=== PATIENT | male | born 1965 | race Caucasian/White ===

== ENCOUNTER 2022-03-17 09:40 | Emergency (ER) | payer SELFPAY ==
[2022-03-17 10:06] VITALS: BP 174/78; PULSE 79; RESP 16; TEMP 36.7; O2SAT 98
[2022-03-17 10:22] VITALS: BP 138/73
[2022-03-17 11:32] LABS: COVID-19 PCR Negative (Negative); Influenza A PCR Negative (Negative); Influenza B PCR Negative (Negative); RSV PCR Negative (Negative)
--- NOTE | 2022-03-17 11:46 | ED.GENADUL_ITS ---
Discharge Plan Disposition Patient Disposition: HOME Condition: Stable Discharge Details Clinical Impression: Cough Primary Care Provider: Unknown,Unknown ED Provider: Marlon Ramirez Home Meds and New Rx's Prescriptions: Continued metformin 500 mg tablet 1 tab PO BID Label Comments: TAKE TWO TABLETS BY MOUTH IN THE MORNING AND 3 TABLETS IN THE EVENING trazodone 150 mg tablet 1 tab PO .QHS Label Comments: TAKE ONE TABLET BY MOUTH AT BEDTIME gabapentin 300 mg capsule 300 mg PO DAILY Label Comments: TAKE 1 CAPSULE DAILY IN THE MORNING AND 3 CAPSULES AT BEDTIME verapamil 240 mg tablet extended release 240 mg PO BID Label Comments: TAKE ONE TABLET BY MOUTH TWICE A DAY FOR BLOOD PRESSURE losartan 100 mg tablet 1 tab PO DAILY Label Comments: TAKE ONE TABLET BY MOUTH EVERY DAY terazosin 10 mg capsule 1 cap PO DAILY Label Comments: TAKE TWO CAPSULES BY MOUTH EVERY DAY hydrochlorothiazide 12.5 mg tablet 12.5 mg PO DAILY Label Comments: TAKE ONE TABLET BY MOUTH EVERY MORNING Jardiance 10 mg tablet 1 tab PO DAILY Label Comments: TAKE ONE TABLET BY MOUTH EVERY DAY Trulicity 3 mg/0.5 mL pen injector SUBCUT .WEEKLY Label Comments: INJECT 3 MILLIGRAMS ONCE WEEKLY Discharge Instructions Instructions: Acute Cough (ED) Additional Instructions: Your COVID, flu, RSV test are all negative. [id number] medication as directed for symptomatic control. Please watch for new or worsening symptoms and return to the ER for any concerns. I do recommend reaching out to your primary care provider to make them aware of your ER visit and need for outpatient reevaluation Medical Decision Making 56-year-old gentleman, past medical history of diabetes, non smoker, presents for URI-like symptoms, is currently taking a class and is concerned about COVID and COVID exposures. Clinically he appears well, nontoxic, he is afebrile, lungs are clear to auscultation, O2 sat 98% on room air. Plan is to obtain a Fluvid swab and reassess. Flu, RSV, COVID-negative. No clear indication for chest x-ray. Patient relieved that he does not have COVID and is comfortable treating his mild symptoms with [id number] medications. Standard discharge and return precautions were provided. Patient understands, is agreeable to this plan, and has no additional questions or concerns upon discharge. This documentation was generated using [employer] system, please disregard any oddities of phrase or misspellings. Lab Data Lab results reviewed: Yes I reviewed the patient's lab results. Labs: Laboratory Tests Range/Units 03/17/22 10:48 COVID-19 Source Not Applicable SARS-CoV-2 (PCR) (Negative) Negative Influenza Type A (PCR) (Negative) Negative Influenza Type B (PCR) (Negative) Negative RSV (PCR) (Negative) Negative HPI General Mode of arrival: ambulatory . Date/Time Provider Initiated Documentation: 03/17/22 10:26 . Limitations to Documentation: no limitations . Information obtained by: patient . History of Present Illness 56 year old M presents to the emergency department with the chief complaint of uri, described as moderate, with intensity rated at 4. Quality is described as aching, and is localized to the back (Body aches). Patient reports no radiation. Patient started experiencing this day(s) (3) and it has been constant. No relieving factors improve symptom(s), No exacerbating factors reported . Patient notes cough; denies fever/chills and nausea/vomiting. Patient did receive the following treatments prior to arrival, none Related Data Home Medications Medication Instructions Recorded Confirmed dulaglutide 3 mg/0.5 mL device subcut .WEEKLY 03/17/22 subcutaneous pen injector (Trulicity) empagliflozin 10 mg tablet 1 tab PO DAILY 03/17/22 03/17/22 (Jardiance) gabapentin 300 mg capsule 300 mg PO DAILY 03/17/22 03/17/22 hydrochlorothiazide 12.5 mg tablet 12.5 mg PO DAILY 03/17/22 03/17/22 losartan 100 mg tablet 1 tab PO DAILY 03/17/22 03/17/22 metformin 500 mg tablet 1 tab PO BID 03/17/22 03/17/22 terazosin 10 mg capsule 1 cap PO DAILY 03/17/22 03/17/22 trazodone 150 mg tablet 1 tab PO .QHS 03/17/22 03/17/22 verapamil 240 mg tablet,extended 240 mg PO BID 03/17/22 03/17/22 release Allergies Allergy/AdvReac Type Severity Reaction Status Date / Time No Known Allergies Allergy Unverified 03/17/22 10:10 General Stated Complaint: RespSymp DANIEL: 4 Review of Systems Constitutional Constitutional: Denies fever(s) ENT Ears, Nose, Mouth, and Throat: Denies neck pain and Reports sore throat Cardiovascular Cardiovascular: Denies chest pain and Denies dyspnea Respiratory Respiratory: Reports cough and Denies dyspnea Gastrointestinal Gastrointestinal: Denies abdominal pain, Denies diarrhea, Denies nausea and Denies vomiting Musculoskeletal Musculoskeletal: Reports myalgias and Denies neck pain Integumentary/Breasts Skin/Breast: Denies rash PFSH All Active Problems (Updated 03/17/22 @ 11:47 by ANALI Lepe) Cough (Acute) Social History Smoking/Tobacco Use Status: Former Tobacco Use Smoking risk assessment performed?: Yes Substance use type: does not use Exam Const General: cooperative, healthy appearing, comfortable and no acute distress Orientation: alert and awake HENMT Head: normal to inspection, normocephalic and atraumatic Face and sinus: normal facial exam Mouth: moist mucous membranes Throat: posterior oropharynx normal Eyes General: appearance normal, both eyes and all related structures Conjunctivae: conjunctivae normal Neck Neck: normal visual inspection, full ROM, no meningeal signs, trachea midline and supple Resp Effort & Inspection: normal respiratory effort and able to speak in complete sentences Auscultation: clear to auscultation bilaterally Cardio Rate: regular rate Rhythm: regular rhythm Skin General skin exam: no rashes or lesions noted Neuro General: patient alert, patient awake, moves all extremities and no focal motor deficits Sensory Exam: no sensory deficits noted Psych Appearance: grossly normal Mental Status: mental status grossly normal Course Vital Signs Vital signs: Vital Signs Temperature 36.7 C 03/17/22 10:06 Pulse 79 03/17/22 10:06 Respiratory Rate 16 03/17/22 10:06 Blood Pressure 174/78 H 03/17/22 10:06 Pulse Oximetry 98 03/17/22 10:06 Temperature 36.7 C 03/17/22 10:06 Temperature Source Oral 03/17/22 10:06 Pulse 79 03/17/22 10:06 Respiratory Rate 16 03/17/22 10:06 Respiratory Effort 03/17/22 10:06 Blood Pressure 138/73 03/17/22 10:22 Blood Pressure Position Sitting 03/17/22 10:06 Pulse Oximetry 98 03/17/22 10:06 Oxygen Delivery Method Room Air 03/17/22 10:06 Oxygen Flow Rate 0 03/17/22 10:06 Pain Level 7 03/17/22 10:06 Lab/Test Results Lab/Test Results: Laboratory Tests Range/Units 03/17/22 10:48 COVID-19 Source Not Applicable SARS-CoV-2 (PCR) (Negative) Negative Influenza Type A (PCR) (Negative) Negative Influenza Type B (PCR) (Negative) Negative RSV (PCR) (Negative) Negative
== END 2022-03-17 11:54 | disposition home or self-care (01) ==
PROVIDERS: Emergency Provider Physician Assistant
DX: R05.1 Acute cough (principal); J02.9 Acute pharyngitis, unspecified; Z20.822 Contact with and (suspected) exposure to COVID-19
CPT/HCPCS: 87637; 99282

== ENCOUNTER 2022-04-01 10:19 | Emergency (ER) | payer SELFPAY ==
[2022-04-01] VITALS (18 sets, daily range): BP systolic 112–139; BP diastolic 63–78; PULSE 67–79; RESP 18; TEMP 36.6; O2SAT 93–98
--- NOTE | 2022-04-01 10:15 | RT.EKG_ITS ---
APPROVED REPORT Exam: Resting ECG Reason for Exam: dizzy Patient Location: E HR:82 bpm ECG Measurements Heart Rate 82 AXIS VA 150 P -19 QRSd 88 QRS 27 QT 368 T 26 QTc 429 Conclusion Sinus rhythm...normal P axis, V-rate 60- 99 sinus rhythm at 82, normal axis, no acute ischemic changes, nondiagnostic EKG
--- NOTE | 2022-04-01 12:01 | W.ED.GENAD ---
Discharge Plan Disposition Patient Disposition: AGAINST MEDICAL ADVICE Condition: Stable Discharge Details Clinical Impression: Acute kidney injury, Pneumonia Primary Care Provider: Unknown,Unknown ED Provider: Zoila Ocampo Home Meds and New Rx's Prescriptions: New azithromycin 250 mg tablet 250 mg PO DAILY 4 Days Qty: 4 0RF Rx Instructions: start on day 2 of therapy (04/02/22) Continued metformin 500 mg tablet 1 tab PO BID Label Comments: TAKE TWO TABLETS BY MOUTH IN THE MORNING AND 3 TABLETS IN THE EVENING trazodone 150 mg tablet 1 tab PO .QHS Label Comments: TAKE ONE TABLET BY MOUTH AT BEDTIME gabapentin 300 mg capsule 300 mg PO DAILY Label Comments: TAKE 1 CAPSULE DAILY IN THE MORNING AND 3 CAPSULES AT BEDTIME verapamil 240 mg tablet extended release 240 mg PO BID Label Comments: TAKE ONE TABLET BY MOUTH TWICE A DAY FOR BLOOD PRESSURE losartan 100 mg tablet 1 tab PO DAILY Label Comments: TAKE ONE TABLET BY MOUTH EVERY DAY terazosin 10 mg capsule 1 cap PO DAILY Label Comments: TAKE TWO CAPSULES BY MOUTH EVERY DAY hydrochlorothiazide 12.5 mg tablet 12.5 mg PO DAILY Label Comments: TAKE ONE TABLET BY MOUTH EVERY MORNING Jardiance 10 mg tablet 1 tab PO DAILY Label Comments: TAKE ONE TABLET BY MOUTH EVERY DAY Trulicity 3 mg/0.5 mL pen injector SUBCUT .WEEKLY Label Comments: INJECT 3 MILLIGRAMS ONCE WEEKLY Discharge Instructions Instructions: Pneumonia (ED) Additional Instructions: You have elected to leave the emergency department AGAINST MEDICAL ADVICE. As we discussed, the risks of doing so are or permanent disability. You may return to emergency department anytime if you change your mind. Please drink plenty of fluids. Please return immediately to the emergency department if you develop any new or worsening symptoms, if your condition does not improve as expected, or if you become otherwise concerned. It is extremely important that you call soon as possible to make an appointment to be seen in follow-up for this visit by your primary care doctor. Discharge Data Discharge Date/Time-TO BE ENTERED AT DEPARTURE: 04/01/22 14:05 Medical Decision Making Kulwinder Jensen is a 56-year-old man with a history of hypertension, diabetes presenting to emergency department with lightheadedness. Patient reports that for the past 3 days he has had lightheadedness as if he were going to faint with standing. Patient reports that he also feels some sense of motion when he has lightheadedness, as if he has to hold on to a person or a wall. Patient reports that symptoms improve after 1 to 2 minutes when he sits down. He denies symptoms with turning his head. Patient reports that he has had similar symptoms in the past 6 or 7 years ago, and was diagnosed with vertigo by his doctor. Patient reports that symptoms went away on their own without intervention at that time. Patient reports that since onset of symptoms 3 days ago he has also had shortness of breath. Patient reports that he feels mildly short of breath at all times, including right now in the emergency department. No modifiers for shortness of breath. He denies any pain, fever, cough, vomiting, diarrhea, numbness, weakness, rash. Patient reports that 2 weeks ago he developed runny nose, cough, and fatigue, and thought he had COVID. He tested negative. Those symptoms resolved prior to onset of his symptoms for which he is here today. On exam patient is very well and nontoxic-appearing. He does not appear nauseated. Benign cardiopulmonary exam, benign neurologic exam, standing and sitting in the ED without issue or apparent lack of balance, normal gait. Concern for dehydration, metabolic/electrolyte derangement, orthostatic presyncope, peripheral vertigo, COVID, other. Doubt pulmonary embolism. Exam/history at this time is not consistent with central vertigo/CVA, acute coronary syndrome, acute aortic pathology, sepsis. Patient with elevated creatinine, D-dimer on screening labs. Discussed results with patient, discussed my recommendation for IV placement for IV fluid hydration, admission for further evaluation of shortness of breath and etiology of acute kidney injury including further imaging with contrast. Patient continues to refuse IV placement, states that he would like to go home and will follow up with his PCP this week. I discussed risks of leaving AGAINST MEDICAL ADVICE including or permanent disability, patient verbalized understanding of these risks and continued to wish to leave the emergency department AMA. Patient patient is alert and oriented x3, clear speech, lucid thought process, has decision-making capacity for informed refusal at this time. Patient states that he is able to drink fluids fine, and will drink fluids, and would prefer to be discharged back to class. He states that he overall feels well and essentially at baseline. I called patient's PCPs office and discussed patient with available physician (patient's PCP not in today). She reports she will call patient to set up a follow-up appointment this week. Chest x-ray shows possible bilateral pneumonia. Given patient with recent respiratory symptoms, shortness of breath, leukocytosis will treat with azithromycin at this time. Patient notified of these results, patient continues to wish to leave AGAINST MEDICAL ADVICE. Risks reiterated, patient verbalized understanding of risk of possible , permanent disability, and continues to refuse further evaluation/treatment. I had a discussion with Patient regarding return to emergency department precautions, home care, and importance of outpatient follow-up. Pt verbalizes understanding of the plan and is amenable. Patient discharged to home with clear plan for outpatient follow-up. All questions were answered. Patient walked out of the emergency department without issue. Disposition decision was made weighing the risks and benefits of hospitalization versus outpatient treatment, the risk for further decompensation, and the patient's wishes. Patient placed on care management list to facilitate outpatient follow-up this week. Medical Records Medical records reviewed: Yes I reviewed the patient's medical records. Imaging Data Radiologic Study: Attestation: I personally reviewed and interpreted this imaging study as follows: Radiologist's impression: EXAM:? XR PORTABLE CHEST AP CLINICAL HISTORY:? SOB, PUI TECHNIQUE:? 2D digital imaging was performed. COMPARISON:? No exams were available for comparison FINDINGS: Exam limited by underpenetration, poor pulmonary inflation and patient body habitus as well as positioning..? LUNGS: Question of basilar infiltrates versus atelectasis.? Clear.? No pleural abnormality seen. HEART: Appears enlarged but may be projectional. AORTA: Normal. BONES: Unremarkable for age.? Soft tissues: Unremarkable. IMPRESSION: Question of basilar infiltrates versus atelectasis.? Limited exam. Lab Data Lab results reviewed: Yes I reviewed the patient's lab results. Labs: Laboratory Tests Range/Units 04/01/22 04/01/22 04/01/22 12:15 12:30 12:30 WBC (4.4-10.8) 10^3/uL 11.70 H RBC (4.36-5.78) 10^6/uL 5.72 Hgb (13.5-17.5) g/dL 16.4 Hct (40.0-50.0) % 48.0 MCV (80-95) fL 84 MCH (27.0-33.0) pg 28.7 MCHC (32.0-36.0) % 34.2 RDW (11.8-14.1) % 13.6 Plt Count (130-400) 10^3/uL 602 H MPV (8.0-11.0) fL 10.2 Immature Gran % 0.4 Neutrophils % 79.3 Lymphocytes % 11.5 Monocytes % 6.1 Eosinophils % 2.6 Basophils % 0.1 Nucleated RBC % (0.0-0.3) % 0.0 Absolute Neutrophils (1.2-6.7) 10^3/uL 9.28 H Absolute Lymphocytes (1.2-3.4) 10^3/uL 1.35 Absolute Monocytes (0.1-0.8) 10^3/uL 0.71 Absolute Eosinophils (0.0-0.7) 10^3/uL 0.30 Absolute Basophils (0.0-0.2) 10^3/uL 0.01 D-Dimer (<500) ng/mlFEU Sodium (136-145) mmol/L 139 Potassium (3.5-5.1) mmol/L 4.3 Chloride (98-107) mmol/L 103 Carbon Dioxide (21.0-32.0) mmol/L 29.0 Anion Gap (3-11) mmol/L 7.0 BUN (7-18) mg/dL 39 H Creatinine (0.70-1.30) mg/dL 2.1 H Estimated GFR/1.73 m2 (mL/min/1.73m2) 32.60 Glucose (74-106) mg/dL 127 H Calcium (8.5-10.1) mg/dL 8.9 Magnesium (1.8-2.4) mg/dL 2.0 Total Bilirubin (0.2-1.0) mg/dL 0.4 AST (15-37) U/L 36 ALT (16-63) U/L 72 H Alkaline Phosphatase (46-116) U/L 170 H Total Protein (6.4-8.2) g/dL 7.3 Albumin (3.4-5.0) g/dL 3.1 L Urine Color (Yellow) Urine Clarity (Clear) Urine pH (5-8) Ur Specific Patterson (1.005-1.025) Urine Protein (Negative) mg/dL Urine Ketones (Negative) mg/dL Urine Blood (Negative) Urine Nitrite (Negative) Urine Bilirubin (Negative) Urine Urobilinogen (Up TO 0.2) EU/dL Ur Leukocyte Esterase (Negative) Urine RBC (0-2) HPF Urine WBC (0-5) HPF Ur Epithelial Cells (Negative) HPF Urine Crystals (Negative) HPF Urine Bacteria (Negative) HPF Urine Casts (Negative) LPF Urine Mucus (Negative) Ur Culture Indicated? Urine Glucose (Negative) mg/dL COVID-19 Source Nasal/Nares SARS-CoV-2 (PCR) (Negative) Negative Range/Units 04/01/22 04/01/22 12:30 12:30 WBC (4.4-10.8) 10^3/uL RBC (4.36-5.78) 10^6/uL Hgb (13.5-17.5) g/dL Hct (40.0-50.0) % MCV (80-95) fL MCH (27.0-33.0) pg MCHC (32.0-36.0) % RDW (11.8-14.1) % Plt Count (130-400) 10^3/uL MPV (8.0-11.0) fL Immature Gran % Neutrophils % Lymphocytes % Monocytes % Eosinophils % Basophils % Nucleated RBC % (0.0-0.3) % Absolute Neutrophils (1.2-6.7) 10^3/uL Absolute Lymphocytes (1.2-3.4) 10^3/uL Absolute Monocytes (0.1-0.8) 10^3/uL Absolute Eosinophils (0.0-0.7) 10^3/uL Absolute Basophils (0.0-0.2) 10^3/uL D-Dimer (<500) ng/mlFEU 525 H Sodium (136-145) mmol/L Potassium (3.5-5.1) mmol/L Chloride (98-107) mmol/L Carbon Dioxide (21.0-32.0) mmol/L Anion Gap (3-11) mmol/L BUN (7-18) mg/dL Creatinine (0.70-1.30) mg/dL Estimated GFR/1.73 m2 (mL/min/1.73m2) Glucose (74-106) mg/dL Calcium (8.5-10.1) mg/dL Magnesium (1.8-2.4) mg/dL Total Bilirubin (0.2-1.0) mg/dL AST (15-37) U/L ALT (16-63) U/L Alkaline Phosphatase (46-116) U/L Total Protein (6.4-8.2) g/dL Albumin (3.4-5.0) g/dL Urine Color (Yellow) Yellow Urine Clarity (Clear) Clear Urine pH (5-8) 5.5 Ur Specific Patterson (1.005-1.025) 1.025 Urine Protein (Negative) mg/dL >=300 H Urine Ketones (Negative) mg/dL Negative Urine Blood (Negative) Negative Urine Nitrite (Negative) Negative Urine Bilirubin (Negative) Negative Urine Urobilinogen (Up TO 0.2) EU/dL 1.0 H Ur Leukocyte Esterase (Negative) Negative Urine RBC (0-2) HPF Negative Urine WBC (0-5) HPF Negative Ur Epithelial Cells (Negative) HPF Rare Urine Crystals (Negative) HPF Negative Urine Bacteria (Negative) HPF Negative Urine Casts (Negative) LPF 3-5 Hyaline Urine Mucus (Negative) Trace Ur Culture Indicated? No Urine Glucose (Negative) mg/dL 500 H COVID-19 Source SARS-CoV-2 (PCR) (Negative) ECG Data Attestation: I personally reviewed and interpreted this ECG (s) as follows: Interpretation: EKG shows sinus rhythm at 82, normal axis, no acute ischemic changes, nondiagnostic EKG HPI General Mode of arrival: ambulatory. Date/Time Provider Initiated Documentation: 04/01/22 11:59. Limitations to Documentation: no limitations. Information obtained by: patient, RN notes reviewed and old records reviewed. HPI Narrative: Kulwinder Jensen is a 56-year-old man with a history of hypertension, diabetes presenting to emergency department with lightheadedness. Patient reports that for the past 3 days he has had lightheadedness as if he were going to faint with standing. Patient reports that he also feels some sense of motion when he has lightheadedness, as if he has to hold on to a person or a wall. Patient reports that symptoms improve after 1 to 2 minutes when he sits down. He denies symptoms with turning his head. Patient reports that he has had similar symptoms in the past 6 or 7 years ago, and was diagnosed with vertigo by his doctor. Patient reports that symptoms went away on their own without intervention at that time. Patient reports that since onset of symptoms 3 days ago he has also had shortness of breath. Patient reports that he feels mildly short of breath at all times, including right now in the emergency department. No modifiers for shortness of breath. He denies any pain, fever, cough, vomiting, diarrhea, numbness, weakness, rash. Patient reports that 2 weeks ago he developed runny nose, cough, and fatigue, and thought he had COVID. He tested negative. Those symptoms resolved prior to onset of his symptoms for which he is here today. Related Data Home Medications Medication Instructions Recorded Confirmed dulaglutide 3 mg/0.5 mL device subcut .WEEKLY 03/17/22 subcutaneous pen injector (Trulicity) empagliflozin 10 mg tablet 1 tab PO DAILY 03/17/22 04/01/22 (Jardiance) gabapentin 300 mg capsule 300 mg PO DAILY 03/17/22 04/01/22 hydrochlorothiazide 12.5 mg tablet 12.5 mg PO DAILY 03/17/22 04/01/22 losartan 100 mg tablet 1 tab PO DAILY 03/17/22 04/01/22 metformin 500 mg tablet 1 tab PO BID 03/17/22 04/01/22 terazosin 10 mg capsule 1 cap PO DAILY 03/17/22 04/01/22 trazodone 150 mg tablet 1 tab PO .QHS 03/17/22 04/01/22 verapamil 240 mg tablet,extended 240 mg PO BID 03/17/22 04/01/22 release azithromycin 250 mg tablet 250 mg PO DAILY 4 days #4 tabs 04/01/22 Previous Rx's Medication Instructions Recorded azithromycin 250 mg tablet 250 mg PO DAILY 4 days #4 tabs 04/01/22 Allergies Allergy/AdvReac Type Severity Reaction Status Date / Time No Known Allergies Allergy Unverified 03/17/22 10:10 General Stated Complaint: RespSymp DANIEL: 3 Review of Systems Narrative: Constitutional: denies fevers Eyes: denies eye pain ENT: denies ear pain, dental pain, sore throat Cardiovascular: denies chest pain, edema, reports lightheadedness Respiratory: denies cough, reports shortness of breath GI: denies abdominal pain, vomiting, diarrhea : denies flank pain MSK: denies back pain, neck pain, arthralgias, myalgias Skin: denies rash Neuro: denies headaches, numbness, weakness, reports vertigo PFSH All Active Problems (Updated 04/01/22 @ 13:47 by Zoila Ocampo MD) Cough (Acute) Acute kidney injury (Acute) Pneumonia (Acute) Social History Smoking/Tobacco Use Status: Former Tobacco Use Smoking risk assessment performed?: Yes Alcohol Intake: current Alcohol Intake frequency: holidays/special occasions only Drug use: Never Substance use type: does not use Do you feel safe at home: Yes Do you feel safe in your relationship?: Yes Exam Narrative Exam Narrative: Constitutional: well and [id number], pleasant, conversing normally HENT: head atraumatic/normocephalic/normal inspection, mucous membranes moist, TMs and canals normal bilaterally Eyes: conjunctiva normal, sclera normal, pupils 3mm b/l Neck: no stridor, normal ROM, trachea midline Chest: normal inspection Resp: normal work of breathing, LCTAB Cardio: normal rate, normal rhythm, no murmur appreciated GI: abdomen soft, non-tender, non-distended Back: normal inspection, no rash Skin: warm, dry, normal color, no rash Neuro: alert, not altered, cranial nerves II through XII intact, motor 5 out of 5 throughout, normal tone Ext: no edema Psych: normal mood, normal affect, normal behavior Course Vital Signs Vital signs: Vital Signs Temperature 36.6 C 04/01/22 10:24 Pulse 79 04/01/22 10:24 Respiratory Rate 18 04/01/22 10:24 Blood Pressure 112/71 04/01/22 10:24 Pulse Oximetry 96 04/01/22 10:24 Temperature 36.6 C 04/01/22 10:24 Temperature Source Temporal Artery Scan 04/01/22 10:24 Pulse 79 04/01/22 10:24 Respiratory Rate 18 04/01/22 10:24 Respiratory Effort Non-Labored 04/01/22 10:29 Blood Pressure 112/71 04/01/22 10:24 Blood Pressure Position Sitting 04/01/22 10:24 Pulse Oximetry 96 04/01/22 10:24 Oxygen Delivery Method Room Air 04/01/22 10:24 Oxygen Flow Rate 0 04/01/22 10:24
--- NOTE | 2022-04-01 12:15 | DI.RAD_ITS ---
Exam(s) XR PORTABLE CHEST AP EXAM: XR PORTABLE CHEST AP CLINICAL HISTORY: SOB, PUI TECHNIQUE: 2D digital imaging was performed. COMPARISON: No exams were available for comparison FINDINGS: Exam limited by underpenetration, poor pulmonary inflation and patient body habitus as well as positi oning.. LUNGS: Question of basilar infiltrates versus atelectasis. Clear. No pleural abnormality seen. HEART: Appears enlarged but may be projectional. AORTA: Normal. BONES: Unremarkable for age. Soft tissues: Unremarkable. IMPRESSION: Question of basilar infiltrates versus atelectasis. Limited exam. DATA REPOSITORY: RADIATION DOSE DELIVERED:
[2022-04-01] MEDS: Meclizine 25 MG TAB PO (12:19)
[2022-04-01 12:34] LABS: Source Nasal/Nares
[2022-04-01 12:36] LABS: Abs Immature Grans 0.05 10^3/uL (0.0-0.06); Absolute Basophil Count 0.01 10^3/uL (0.0-0.2); Absolute Lymphocyte Count 1.35 10^3/uL (1.2-3.4); Absolute Monocyte Count 0.71 10^3/uL (0.1-0.8); Absolute Neutrophil Count 9.28 10^3/uL (1.2-6.7); Basophils % 0.1; Eosinophils % 2.6; HGB 16.4 g/dL (13.5-17.5); Immature Grans % 0.4; Lymphocytes % 11.5; MCH 28.7 pg (27.0-33.0); MCHC 34.2 % (32.0-36.0); MCV 84 fL (80-95); MPV 10.2 fL (8.0-11.0); Monocytes % 6.1; Neutrophils % 79.3; Platelet Count 602 10^3/uL (130-400); RBC 5.72 10^6/uL (4.36-5.78); RDW 13.6 % (11.8-14.1); RDW-SD 41.4 fL
[2022-04-01 12:37] LABS: Bilirubin Negative (Negative); Blood Negative (Negative); Clarity Clear (Clear); Glucose 500 mg/dL (Negative); Ketones Negative (Negative); Leukocyte Esterase Negative (Negative); Nitrite Negative (Negative); Specific Gravity 1.025 (1.005-1.025); pH 5.5 (5-8)
[2022-04-01 12:45] LABS: Bacteria Negative HPF (Negative); C & S Indicated? No; Casts 3-5 Hyaline LPF (Negative); Crystals Negative HPF (Negative); Epithelial Cells Rare HPF (Negative); Mucus Trace (Negative); RBC Negative HPF (0-2); WBC Negative HPF (0-5)
[2022-04-01 12:50] LABS: ALT 72 U/L (16-63); AST 36 U/L (15-37); Albumin 3.1 g/dL (3.4-5.0); Alkaline Phosphatase 170 U/L (46-116); BUN 39 mg/dL (7-18); Bilirubin, Total 0.4 mg/dL (0.2-1.0); CREATININE 2.1 mg/dL (0.70-1.30); Calcium 8.9 mg/dL (8.5-10.1); Chloride 103 mmol/L (98-107); Glucose 127 mg/dL (74-106); Potassium 4.3 mmol/L (3.5-5.1); Sodium 139 mmol/L (136-145); Total Protein 7.3 g/dL (6.4-8.2)
[2022-04-01 13:06] LABS: D-Dimer 525 ng/mlFEU (<500)
[2022-04-01 13:33] LABS: COVID-19 PCR Negative (Negative)
[2022-04-01] MEDS: Azithromycin 250 MG TAB 500 MG PO (13:54)
== END 2022-04-01 14:05 | disposition left against medical advice (07) ==
PROVIDERS: Emergency Provider Student in an Organized Health Care Education/Training Program
DX: N17.9 Acute kidney failure, unspecified (principal); J18.9 Pneumonia, unspecified organism; Z53.29 Procedure and treatment not carried out because of patient's decision for other reasons; R06.02 Shortness of breath; R42 Dizziness and giddiness
CPT/HCPCS: 36415; 80053; 87635; 93005; 99284; 71045; 81003; 81015; 83735; 85025; 85379; 93010

== ENCOUNTER 2022-04-11 06:35 | Emergency (ER) | payer SELFPAY ==
[2022-04-11 06:45] VITALS: BP 117/76; PULSE 102; RESP 20; TEMP 36.8; O2SAT 96
--- NOTE | 2022-04-11 06:45 | RT.EKG_ITS ---
APPROVED REPORT Exam: Resting ECG Reason for Exam: shortness of breath Patient Location: E HR:96 bpm ECG Measurements Heart Rate 96 AXIS HI 147 P 15 QRSd 88 QRS 47 QT 345 T 30 QTc 435 Conclusion Sinus rhythm...normal P axis, V-rate 60- 99 no stemi
--- NOTE | 2022-04-11 06:56 | ED.GENADUL_ITS ---
Discharge Plan Disposition Patient Disposition: STILL A PATIENT Condition: Stable Discharge Details Clinical Impression: Shortness of breath Primary Care Provider: Unknown,Unknown ED Provider: Maikel Haddad Home Meds and New Rx's Prescriptions: No Action metformin 500 mg tablet 1 tab PO BID Label Comments: TAKE TWO TABLETS BY MOUTH IN THE MORNING AND 3 TABLETS IN THE EVENING trazodone 150 mg tablet 1 tab PO .QHS Label Comments: TAKE ONE TABLET BY MOUTH AT BEDTIME gabapentin 300 mg capsule 300 mg PO DAILY Label Comments: TAKE 1 CAPSULE DAILY IN THE MORNING AND 3 CAPSULES AT BEDTIME verapamil 240 mg tablet extended release 240 mg PO BID Label Comments: TAKE ONE TABLET BY MOUTH TWICE A DAY FOR BLOOD PRESSURE losartan 100 mg tablet 1 tab PO DAILY Label Comments: TAKE ONE TABLET BY MOUTH EVERY DAY terazosin 10 mg capsule 1 cap PO DAILY Label Comments: TAKE TWO CAPSULES BY MOUTH EVERY DAY hydrochlorothiazide 12.5 mg tablet 12.5 mg PO DAILY Label Comments: TAKE ONE TABLET BY MOUTH EVERY MORNING Jardiance 10 mg tablet 1 tab PO DAILY Label Comments: TAKE ONE TABLET BY MOUTH EVERY DAY Trulicity 3 mg/0.5 mL pen injector SUBCUT .WEEKLY Label Comments: INJECT 3 MILLIGRAMS ONCE WEEKLY Medical Decision Making 56 yo male with hx of HTN 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 He was seen on 04/01 for shortness of breath, first time having cmp done in our facility and creatinine was foud to be just over 2 and GFR in the 30's, unclear if this is new for him. He had a d dimer that was below his age adjusted threshold and negative troponin and xray showing atelecatasis vs infiltrate. He left ama and was placed on azithromycin, denies ever having cough or fevers. He felt better but again this morning upon wakening felt short of breath and had tremors in his hands so came here. He denies having chest pain, abdomen pain, back pain. He arrives stable speaking in full sentences. He has no calf tenderness, clear lungs, no murmurs. He states he still feels like he has tremors in his hands though I do not visualize any tremors in his hands. Unclear etiology for his symptoms, ekg nondiagnostic. He has no chest pain but given his DM could present with nstemi atypically, will obtain troponin x2. Will also evaluate for anemia, worsening kidney function, and also send d dimer as he is wells score low. pt stable, labs and xray still pending, pt signed out to oncoming provider pending these results and dispo Differential Diagnosis Differential Diagnosis: pneumonia, covid, pe, nstemi Medical Records Medical records reviewed: Yes I reviewed the patient's medical records. Lab Data Lab results reviewed: Yes I reviewed the patient's lab results. ECG Data Attestation: I personally reviewed and interpreted this ECG (s) as follows: Prior ECG tracings: available for review Interpretation: sinus rhythm, rate of 96, no stemi HPI General Mode of arrival: ambulatory . Date/Time Provider Initiated Documentation: 04/11/22 06:37 . Limitations to Documentation: no limitations . Information obtained by: patient . History of Present Illness 56 year old M presents to the emergency department with the chief complaint of shortness of breath, described as moderate, Patient started experiencing this week(s) (2) and it has been constant. No relieving factors improve symptom(s), No exacerbating factors reported . Patient notes other (tremors of extremities). Patient did receive the following treatments prior to arrival, none Related Data Home Medications Medication Instructions Recorded Confirmed dulaglutide 3 mg/0.5 mL device subcut .WEEKLY 03/17/22 subcutaneous pen injector (Trulicity) empagliflozin 10 mg tablet 1 tab PO DAILY 03/17/22 04/01/22 (Jardiance) gabapentin 300 mg capsule 300 mg PO DAILY 03/17/22 04/01/22 hydrochlorothiazide 12.5 mg tablet 12.5 mg PO DAILY 03/17/22 04/01/22 losartan 100 mg tablet 1 tab PO DAILY 03/17/22 04/01/22 metformin 500 mg tablet 1 tab PO BID 03/17/22 04/01/22 terazosin 10 mg capsule 1 cap PO DAILY 03/17/22 04/01/22 trazodone 150 mg tablet 1 tab PO .QHS 03/17/22 04/01/22 verapamil 240 mg tablet,extended 240 mg PO BID 03/17/22 04/01/22 release Allergies Allergy/AdvReac Type Severity Reaction Status Date / Time No Known Allergies Allergy Unverified 03/17/22 10:10 General Stated Complaint: GenMedical DANIEL: 3 Review of Systems All systems reviewed & are unremarkable except as noted in HPI and below Constitutional Constitutional: Denies chills, Denies fever(s) and Denies weakness Cardiovascular Cardiovascular: Denies chest pain Respiratory Respiratory: Denies cough Gastrointestinal Gastrointestinal: Denies abdominal pain, Denies nausea and Denies vomiting Musculoskeletal Musculoskeletal: Denies joint swelling Integumentary/Breasts Skin/Breast: Denies rash Neurologic Neurologic: Denies weakness PFSH All Active Problems (Updated 04/11/22 @ 07:03 by Maikel Haddad MD) Cough (Acute) Acute kidney injury (Acute) Pneumonia (Acute) Shortness of breath (Acute) Social History Smoking/Tobacco Use Status: Former Tobacco Use Smoking risk assessment performed?: Yes Alcohol Intake: current Alcohol Intake frequency: holidays/special occasions only Drug use: Never Substance use type: does not use Do you feel safe at home: Yes Do you feel safe in your relationship?: Yes Exam Const General: no acute distress Orientation: alert HENMT Head: normal to inspection Ears: external ears normal General nose exam: external nose normal Mouth: moist mucous membranes Eyes General: appearance normal, both eyes and all related structures Neck Neck: normal visual inspection Resp Effort & Inspection: normal respiratory effort and able to speak in complete sentences Cardio Rate: regular rate GI Palpation: nontender Skin General skin exam: no rashes or lesions noted Neuro General: patient alert and patient oriented x3 Extrem General: normal to inspection Psych Mental Status: mental status grossly normal Course Vital Signs Vital signs: Vital Signs Temperature 36.8 C 04/11/22 06:45 Pulse 102 H 04/11/22 06:45 Respiratory Rate 20 04/11/22 06:45 Blood Pressure 117/76 04/11/22 06:45 Pulse Oximetry 96 04/11/22 06:45 Temperature 36.8 C 04/11/22 06:45 Temperature Source Temporal Artery Scan 04/11/22 06:45 Pulse 102 H 04/11/22 06:45 Respiratory Rate 20 04/11/22 06:45 Blood Pressure 117/76 04/11/22 06:45 Blood Pressure Position Sitting 04/11/22 06:45 Pulse Oximetry 96 04/11/22 06:45 Oxygen Delivery Method Room Air 04/11/22 06:45 Oxygen Flow Rate 0 04/11/22 06:45 Lab/Test Results Lab/Test Results: 04/11/22 06:47 Blood Blood Culture - Pending 04/11/22 06:47 Blood Blood Culture - Pending Sign Out Sign Out Data: Sign Out Comment: seen a week ago for dyspnea and left ama, placed on azithromycin for possible pneumonia. Had GFR in the 30's and has not had cmp in the past here. Came in today with shortness of breath and felt tremors in his hands. Pending labs including delta troponin, cxr, fluvid and d dimer. Last updated by Maikel Haddad MD at 04/11/22 07:06
--- NOTE | 2022-04-11 07:15 | DI.RAD_ITS ---
Exam(s) XR PORTABLE CHEST AP EXAM: XR PORTABLE CHEST AP CLINICAL HISTORY: short of breath TECHNIQUE: 2D digital imaging was performed. COMPARISON: CR XR PORTABLE CHEST AP from 04/01/2022 FINDINGS: Limited exam due to underpenetration and poor pulmonary inflation. LUNGS: Pulmonary vascular prominence. No consolidation. No pleural abnormality seen. HEART: Normal. AORTA: Normal. BONES: Unremarkable for age. Soft tissues: Unremarkable. IMPRESSION: Pulmonary vascular prominence could indicate mild CHF. No focal consolidation or effusion. DATA REPOSITORY: RADIATION DOSE DELIVERED:
[2022-04-11 07:57] LABS: BE (Venous) 1 mmol/L (-2-3); HCO3 (Venous) 26 mmol/L (23-28); O2 Sat (Venous) 85 %; TCO2 (Venous) 23 mmol/L (24-29); pCO2 (Venous) 44 mmHg (41-51); pH (Venous) 7.39 (7.31-7.41); pO2 (Venous) 49 mmHg
[2022-04-11 07:58] VITALS: RESP 18
[2022-04-11 07:58] LABS: Lactate 2.1 mmol/L (0.6-1.4)
[2022-04-11 08:02] LABS: Abs Immature Grans 0.05 10^3/uL (0.0-0.06); Absolute Basophil Count 0.02 10^3/uL (0.0-0.2); Absolute Eosinophil Count 0.24 10^3/uL (0.0-0.7); Absolute Lymphocyte Count 0.32 10^3/uL (1.2-3.4); Absolute Monocyte Count 0.75 10^3/uL (0.1-0.8); Absolute Neutrophil Count 7.48 10^3/uL (1.2-6.7); Basophils % 0.2; Eosinophils % 2.7; HCT 45.5 % (40.0-50.0); HGB 15.2 g/dL (13.5-17.5); Immature Grans % 0.6; Lymphocytes % 3.6; MCH 28.4 pg (27.0-33.0); MCHC 33.4 % (32.0-36.0); MCV 85 fL (80-95); MPV 10.4 fL (8.0-11.0); Monocytes % 8.5; Neutrophils % 84.4; Platelet Count 514 10^3/uL (130-400); RBC 5.36 10^6/uL (4.36-5.78); RDW 13.7 % (11.8-14.1); RDW-SD 42.5 fL; WBC 8.86 10^3/uL (4.4-10.8)
[2022-04-11 08:03] LABS: Bilirubin Negative (Negative); Blood Negative (Negative); Clarity Clear (Clear); Glucose >=1000 mg/dL (Negative); Ketones Negative (Negative); Leukocyte Esterase Negative (Negative); Nitrite Negative (Negative); Urobilinogen 0.2 EU/dL (Up TO 0.2); pH 5.5 (5-8)
--- NOTE | 2022-04-11 08:04 | W.EDPROG ---
Date of service: 04/11/22 Time of Service: 08:04 Medical Decision Making 0800 -- please see Dr. Haddad's note for initial presentation, exam and plan. Case endorsed to follow-up on labs and imaging and final disposition. Patient has received 2 COVID vaccines but not yet a booster. Patient is a 56-year-old male with a history of morbid obesity, hypertension, diabetes who was seen here last week and left AMA but diagnosed with bilateral pneumonia and given Zithromax presents for shortness of breath and shaking of his hands bilaterally today. He states he finished his Zithromax and his shortness of breath somewhat improved until today. Lungs clear bilaterally. Oxygen saturation 96% on room air. 0900 --labs and imaging reviewed. COVID POSITIVE. White blood cell count and D-dimer within normal limits. Creatinine unchanged from last week at 2.1. Troponin negative. BNP within normal limits. Urinalysis negative for infection. Chest x-ray negative for focal consolidation or effusion. Case discussed with pharmacy and due to chronic kidney disease, will hold on paxlovid and give monoclonal antibody infusion. 1030 --patient has maintained normal oxygen saturation and feels good to go home. He was given the monoclonal antibody infusion. Advised to follow-up with his PCP for reevaluation. He states he was aware of chronic kidney disease per his pcp. Usual and customary return precautions given prior to discharge. Medical Records Medical records reviewed: Yes I reviewed the patient's medical records. Imaging Data Radiologic Study: Radiologist's impression: XR PORTABLE CHEST AP CLINICAL HISTORY:? short of breath TECHNIQUE:? 2D digital imaging was performed. COMPARISON:? CR XR PORTABLE CHEST AP from 04/01/2022 FINDINGS: Limited exam due to underpenetration and poor pulmonary inflation.? LUNGS: Pulmonary vascular prominence.? No consolidation.? No pleural abnormality seen. HEART: Normal. AORTA: Normal. BONES: Unremarkable for age.? Soft tissues: Unremarkable. IMPRESSION: Pulmonary vascular prominence could indicate mild CHF.? No focal consolidation or effusion. Lab Data Lab results reviewed: Yes I reviewed the patient's lab results. Labs: 04/11/22 09:04 Blood Blood Culture - Pending 04/11/22 07:55 Blood Blood Culture - Pending Laboratory Tests Range/Units 04/11/22 04/11/22 04/11/22 07:40 07:45 07:45 WBC (4.4-10.8) 10^3/uL RBC (4.36-5.78) 10^6/uL Hgb (13.5-17.5) g/dL Hct (40.0-50.0) % MCV (80-95) fL MCH (27.0-33.0) pg MCHC (32.0-36.0) % RDW (11.8-14.1) % Plt Count (130-400) 10^3/uL MPV (8.0-11.0) fL Immature Gran % Neutrophils % Lymphocytes % Monocytes % Eosinophils % Basophils % Nucleated RBC % (0.0-0.3) % Absolute Neutrophils (1.2-6.7) 10^3/uL Absolute Lymphocytes (1.2-3.4) 10^3/uL Absolute Monocytes (0.1-0.8) 10^3/uL Absolute Eosinophils (0.0-0.7) 10^3/uL Absolute Basophils (0.0-0.2) 10^3/uL D-Dimer (<500) ng/mlFEU VBG pH (7.31-7.41) VBG pCO2 (41-51) mmHg VBG pO2 mmHg VBG HCO3 (23-28) mmol/L VBG Total CO2 (24-29) mmol/L VBG O2 Saturation % VBG Base Excess (-2-3) mmol/L VBG Lactate (0.6-1.4) mmol/L 2.1 H Sodium (136-145) mmol/L 137 Potassium (3.5-5.1) mmol/L 4.0 Chloride (98-107) mmol/L 101 Carbon Dioxide (21.0-32.0) mmol/L 26.7 Anion Gap (3-11) mmol/L 9.3 BUN (7-18) mg/dL 45 H Creatinine (0.70-1.30) mg/dL 2.1 H Estimated GFR/1.73 m2 (mL/min/1.73m2) 32.60 Glucose (74-106) mg/dL 232 H Calcium (8.5-10.1) mg/dL 8.6 Magnesium (1.8-2.4) mg/dL 2.1 Total Bilirubin (0.2-1.0) mg/dL 0.4 AST (15-37) U/L 16 ALT (16-63) U/L 31 Alkaline Phosphatase (46-116) U/L 124 H Troponin I (<or=60) ng/L < 50 NT-Pro-B Natriuret Pep (<300) pg/mL 249 Total Protein (6.4-8.2) g/dL 7.0 Albumin (3.4-5.0) g/dL 3.1 L Procalcitonin ng/mL 0.3 TSH (0.36-3.74) uIU/mL 1.10 Urine Color (Yellow) Urine Clarity (Clear) Urine pH (5-8) Ur Specific [place] (1.005-1.025) Urine Protein (Negative) mg/dL Urine Ketones (Negative) mg/dL Urine Blood (Negative) Urine Nitrite (Negative) Urine Bilirubin (Negative) Urine Urobilinogen (Up TO 0.2) EU/dL Ur Leukocyte Esterase (Negative) Urine RBC (0-2) HPF Urine WBC (0-5) HPF Ur Epithelial Cells (Negative) HPF Urine Crystals (Negative) HPF Urine Bacteria (Negative) HPF Urine Casts (Negative) LPF Urine Mucus (Negative) Ur Culture Indicated? Urine Glucose (Negative) mg/dL COVID-19 Source Not Applicable SARS-CoV-2 (PCR) (Negative) Positive A Influenza Type A (PCR) (Negative) Negative Influenza Type B (PCR) (Negative) Negative RSV (PCR) (Negative) Negative Range/Units 04/11/22 04/11/22 04/11/22 07:45 07:45 07:45 WBC (4.4-10.8) 10^3/uL 8.86 RBC (4.36-5.78) 10^6/uL 5.36 Hgb (13.5-17.5) g/dL 15.2 Hct (40.0-50.0) % 45.5 MCV (80-95) fL 85 MCH (27.0-33.0) pg 28.4 MCHC (32.0-36.0) % 33.4 RDW (11.8-14.1) % 13.7 Plt Count (130-400) 10^3/uL 514 H MPV (8.0-11.0) fL 10.4 Immature Gran % 0.6 Neutrophils % 84.4 Lymphocytes % 3.6 Monocytes % 8.5 Eosinophils % 2.7 Basophils % 0.2 Nucleated RBC % (0.0-0.3) % 0.0 Absolute Neutrophils (1.2-6.7) 10^3/uL 7.48 H Absolute Lymphocytes (1.2-3.4) 10^3/uL 0.32 L Absolute Monocytes (0.1-0.8) 10^3/uL 0.75 Absolute Eosinophils (0.0-0.7) 10^3/uL 0.24 Absolute Basophils (0.0-0.2) 10^3/uL 0.02 D-Dimer (<500) ng/mlFEU 442 VBG pH (7.31-7.41) 7.39 VBG pCO2 (41-51) mmHg 44 VBG pO2 mmHg 49 VBG HCO3 (23-28) mmol/L 26 VBG Total CO2 (24-29) mmol/L 23 L VBG O2 Saturation % 85 VBG Base Excess (-2-3) mmol/L 1 VBG Lactate (0.6-1.4) mmol/L Sodium (136-145) mmol/L Potassium (3.5-5.1) mmol/L Chloride (98-107) mmol/L Carbon Dioxide (21.0-32.0) mmol/L Anion Gap (3-11) mmol/L BUN (7-18) mg/dL Creatinine (0.70-1.30) mg/dL Estimated GFR/1.73 m2 (mL/min/1.73m2) Glucose (74-106) mg/dL Calcium (8.5-10.1) mg/dL Magnesium (1.8-2.4) mg/dL Total Bilirubin (0.2-1.0) mg/dL AST (15-37) U/L ALT (16-63) U/L Alkaline Phosphatase (46-116) U/L Troponin I (<or=60) ng/L NT-Pro-B Natriuret Pep (<300) pg/mL Total Protein (6.4-8.2) g/dL Albumin (3.4-5.0) g/dL Procalcitonin ng/mL TSH (0.36-3.74) uIU/mL Urine Color (Yellow) Urine Clarity (Clear) Urine pH (5-8) Ur Specific [place] (1.005-1.025) Urine Protein (Negative) mg/dL Urine Ketones (Negative) mg/dL Urine Blood (Negative) Urine Nitrite (Negative) Urine Bilirubin (Negative) Urine Urobilinogen (Up TO 0.2) EU/dL Ur Leukocyte Esterase (Negative) Urine RBC (0-2) HPF Urine WBC (0-5) HPF Ur Epithelial Cells (Negative) HPF Urine Crystals (Negative) HPF Urine Bacteria (Negative) HPF Urine Casts (Negative) LPF Urine Mucus (Negative) Ur Culture Indicated? Urine Glucose (Negative) mg/dL COVID-19 Source SARS-CoV-2 (PCR) (Negative) Influenza Type A (PCR) (Negative) Influenza Type B (PCR) (Negative) RSV (PCR) (Negative) Range/Units 04/11/22 04/11/22 04/11/22 07:55 09:46 10:00 WBC (4.4-10.8) 10^3/uL RBC (4.36-5.78) 10^6/uL Hgb (13.5-17.5) g/dL Hct (40.0-50.0) % MCV (80-95) fL MCH (27.0-33.0) pg MCHC (32.0-36.0) % RDW (11.8-14.1) % Plt Count (130-400) 10^3/uL MPV (8.0-11.0) fL Immature Gran % Neutrophils % Lymphocytes % Monocytes % Eosinophils % Basophils % Nucleated RBC % (0.0-0.3) % Absolute Neutrophils (1.2-6.7) 10^3/uL Absolute Lymphocytes (1.2-3.4) 10^3/uL Absolute Monocytes (0.1-0.8) 10^3/uL Absolute Eosinophils (0.0-0.7) 10^3/uL Absolute Basophils (0.0-0.2) 10^3/uL D-Dimer (<500) ng/mlFEU VBG pH (7.31-7.41) VBG pCO2 (41-51) mmHg VBG pO2 mmHg VBG HCO3 (23-28) mmol/L VBG Total CO2 (24-29) mmol/L VBG O2 Saturation % VBG Base Excess (-2-3) mmol/L VBG Lactate (0.6-1.4) mmol/L 1.3 Sodium (136-145) mmol/L Potassium (3.5-5.1) mmol/L Chloride (98-107) mmol/L Carbon Dioxide (21.0-32.0) mmol/L Anion Gap (3-11) mmol/L BUN (7-18) mg/dL Creatinine (0.70-1.30) mg/dL Estimated GFR/1.73 m2 (mL/min/1.73m2) Glucose (74-106) mg/dL Calcium (8.5-10.1) mg/dL Magnesium (1.8-2.4) mg/dL Total Bilirubin (0.2-1.0) mg/dL AST (15-37) U/L ALT (16-63) U/L Alkaline Phosphatase (46-116) U/L Troponin I (<or=60) ng/L Cancelled NT-Pro-B Natriuret Pep (<300) pg/mL Total Protein (6.4-8.2) g/dL Albumin (3.4-5.0) g/dL Procalcitonin ng/mL TSH (0.36-3.74) uIU/mL Urine Color (Yellow) Yellow Urine Clarity (Clear) Clear Urine pH (5-8) 5.5 Ur Specific [place] (1.005-1.025) 1.020 Urine Protein (Negative) mg/dL 100 H Urine Ketones (Negative) mg/dL Negative Urine Blood (Negative) Negative Urine Nitrite (Negative) Negative Urine Bilirubin (Negative) Negative Urine Urobilinogen (Up TO 0.2) EU/dL 0.2 Ur Leukocyte Esterase (Negative) Negative Urine RBC (0-2) HPF Negative Urine WBC (0-5) HPF Negative Ur Epithelial Cells (Negative) HPF Rare Urine Crystals (Negative) HPF Negative Urine Bacteria (Negative) HPF Negative Urine Casts (Negative) LPF 0-2 Hyaline Urine Mucus (Negative) Negative Ur Culture Indicated? No Urine Glucose (Negative) mg/dL >=1000 H COVID-19 Source SARS-CoV-2 (PCR) (Negative) Influenza Type A (PCR) (Negative) Influenza Type B (PCR) (Negative) RSV (PCR) (Negative) Sign Out Sign Out Data: Sign Out Comment: seen a week ago for dyspnea and left ama, placed on azithromycin for possible pneumonia. Had GFR in the 30's and has not had cmp in the past here. Came in today with shortness of breath and felt tremors in his hands. Pending labs including delta troponin, cxr, fluvid and d dimer. Last updated by Maikel Haddad MD at 04/11/22 07:06 Discharge Plan Disposition Patient Disposition: HOME Condition: Improving Discharge Details Clinical Impression: COVID-19 Primary Care Provider: Unknown,Unknown ED Provider: Angelica Villareal Home Meds and New Rx's Prescriptions: Continued metformin 500 mg tablet 1 tab PO BID Label Comments: TAKE TWO TABLETS BY MOUTH IN THE MORNING AND 3 TABLETS IN THE EVENING trazodone 150 mg tablet 1 tab PO .QHS Label Comments: TAKE ONE TABLET BY MOUTH AT BEDTIME gabapentin 300 mg capsule 300 mg PO DAILY Label Comments: TAKE 1 CAPSULE DAILY IN THE MORNING AND 3 CAPSULES AT BEDTIME verapamil 240 mg tablet extended release 240 mg PO BID Label Comments: TAKE ONE TABLET BY MOUTH TWICE A DAY FOR BLOOD PRESSURE losartan 100 mg tablet 1 tab PO DAILY Label Comments: TAKE ONE TABLET BY MOUTH EVERY DAY terazosin 10 mg capsule 1 cap PO DAILY Label Comments: TAKE TWO CAPSULES BY MOUTH EVERY DAY hydrochlorothiazide 12.5 mg tablet 12.5 mg PO DAILY Label Comments: TAKE ONE TABLET BY MOUTH EVERY MORNING Jardiance 10 mg tablet 1 tab PO DAILY Label Comments: TAKE ONE TABLET BY MOUTH EVERY DAY Trulicity 3 mg/0.5 mL pen injector SUBCUT .WEEKLY Label Comments: INJECT 3 MILLIGRAMS ONCE WEEKLY Discharge Instructions Instructions: COVID-19 (Coronavirus Disease 2019) (ED) Additional Instructions: Your lab work today revealed that you are positive for the COVID-19 virus. You were given a monoclonal antibody infusion while here in the emergency department which can prevent progression to severe COVID and reduce the risk of severe illness and/or . Your lab work from last week and today revealed that you likely have chronic kidney disease which could be related to your diabetes and/or hypertension. Follow-up with your primary doctor for referral to nephrology for further evaluation. Drink plenty of fluids and get plenty of rest. Alternate tylenol and motrin as needed and directed for pain. Follow-up with your primary care doctor in 1 week. Return to the emergency department with any worsening or new concerning symptoms such as difficulty breathing, persistent vomiting or any other concerns. Stand Alone Forms: Work Release Discharge Data Discharge Date/Time-TO BE ENTERED AT DEPARTURE: 04/11/22 11:04 Discharge Physician: Angelica Villareal
[2022-04-11 08:20] LABS: Bacteria Negative HPF (Negative); C & S Indicated? No; Casts 0-2 Hyaline LPF (Negative); Crystals Negative HPF (Negative); Epithelial Cells Rare HPF (Negative); Mucus Negative (Negative); RBC Negative HPF (0-2); WBC Negative HPF (0-5)
[2022-04-11] MEDS: Normal Saline 1,000 ML 1000 ML IV (08:31)
[2022-04-11] MEDS: Normal Saline Flush 10 ML SYR IVP ×2 (08:32→09:33)
[2022-04-11 08:34] LABS: Influenza A PCR Negative (Negative); Influenza B PCR Negative (Negative); RSV PCR Negative (Negative)
[2022-04-11 08:37] LABS: COVID-19 PCR Positive (Negative)
[2022-04-11 08:41] LABS: ALT 31 U/L (16-63); AST 16 U/L (15-37); Albumin 3.1 g/dL (3.4-5.0); Alkaline Phosphatase 124 U/L (46-116); Anion Gap 9.3 mmol/L (3-11); BUN 45 mg/dL (7-18); Bilirubin, Total 0.4 mg/dL (0.2-1.0); CO2 26.7 mmol/L (21.0-32.0); CREATININE 2.1 mg/dL (0.70-1.30); Calcium 8.6 mg/dL (8.5-10.1); Chloride 101 mmol/L (98-107); Glucose 232 mg/dL (74-106); Magnesium 2.1 mg/dL (1.8-2.4); NT-proBNP 249 pg/mL (<300); Sodium 137 mmol/L (136-145); Troponin I < 50 ng/L (<or=60)
[2022-04-11 08:47] LABS: D-Dimer 442 ng/mlFEU (<500)
[2022-04-11 08:48] LABS: Procalcitonin 0.3 ng/mL
[2022-04-11 10:12] LABS: Lactate 1.3 mmol/L (0.6-1.4)
[2022-04-11 10:50] VITALS: BP 129/72; PULSE 79; RESP 18; TEMP 37.6; O2SAT 96
== END 2022-04-11 11:04 | disposition home or self-care (01) ==
PROVIDERS: Emergency Medicine; Emergency Provider Physician Assistant
DX: U07.1 COVID-19 (principal); R06.02 Shortness of breath
CPT/HCPCS: 36415; 80053; 82805; 84145; 87040; 87637; 93005; 96361; 96374; 99284; Q0222; 71045; 81003; 81015; 83605; 83735; 83880; 84443; 84484; 85025; 85379; 93010